=== PATIENT | female | born 1995 | race American Indian/Alaskan Native ===

== ENCOUNTER 2021-10-08 18:08 | Emergency (ER) | payer MEDICAID ==
[2021-10-08 18:22] VITALS: BP 125/60
== END 2021-10-09 06:19 | disposition left against medical advice (07) ==
LOC: ED 18:08
DX: O20.8 Other hemorrhage in early pregnancy (principal); Z53.21 Procedure and treatment not carried out due to patient leaving prior to being seen by health care provider; Z3A.01 Less than 8 weeks gestation of pregnancy